=== PATIENT | female | born 1940 | race Caucasian/White ===

== ENCOUNTER → 2024-01-07 16:49 | Outpatient (REF) | payer MEDICARE, OTHER, SELFPAY | LOC: RAD 16:49 | PROVIDERS: ATTENDING PHYSICIAN Physician Assistant | DX: M79.672 Pain in left foot (principal) | CPT/HCPCS: 73630 ==

== ENCOUNTER 2024-04-27 15:49 | Emergency (ER) | payer MEDICARE, OTHER, SELFPAY ==
[2024-04-27 15:52] VITALS: BP 96/75
[2024-04-27 16:18] LABS: % Basophils 0.7 % (0-2); % Eosinophils 0.9 % (0-6); % Immature Granulocytes 0.3 % (0-0.5); % Lymphocytes 24.3 % (20.5-51.1); % Monocytes 7.2 % (1.7-9.3); % Neutrophils 66.6 % (42.2-75.2); Absolute Basophils 0.1 10^3/uL (0-0.2); Absolute Eosinophils 0.1 10^3/uL (0-0.7); Absolute Lymphocytes 1.7 10^3/uL (1.2-3.4); Absolute Monocytes 0.5 10^3/uL (0.1-0.6); Absolute Neutrophils 4.6 10^3/uL (1.4-6.5); Hematocrit 36.9 % (37.0-47.0); Hemoglobin 12.6 g/dL (12.0-16.0); Mean Corp Hgb Conc. 34.1 g/dL (33.0-37.0); Mean Corpuscular Hgb 31.6 pg (27.0-31.0); Mean Corpuscular Volume 92.5 fL (81.0-99.0); Mean Platelet Volume 10.2 fL (7.4-10.4); Nucleated Red Blood Cells % 0 %; Platelet Count 178 10^3/uL (130-400); Red Blood Cell Count 3.99 10^6/uL (4.20-5.40); Red Cell Dist. Width 13.2 % (11.5-14.5)
[2024-04-27 16:29] LABS: ALT (SGPT) 15 U/L (0-35); AST (SGOT) 24 U/L (14-36); Albumin 4.2 g/dl (3.5-5.0); Alkaline Phosphatase 68 U/L (38-126); Blood Urea Nitrogen 19 mg/dl (7-17); Calcium 9.5 mg/dl (8.4-10.2); Carbon Dioxide 28 mmol/L (22-30); Chloride 100 mmol/L (98-107); Glucose 131 mg/dl (70-99); Potassium 4.1 mmol/L (3.5-5.1); Sodium 134 mmol/L (135-145); Total Bilirubin 0.6 mg/dl (0.2-1.3); eGFR > 60.00
[2024-04-27 16:41] LABS: Troponin I < 0.012 ng/ml
[2024-04-27 18:26] VITALS: BMI 23.8
--- NOTE | 2024-04-27 18:56 | ED.GENMED ---
History of Present Illness
General
Chief Complaint: Abdominal Pain
Source: patient and family
Time Seen by Provider: 04/27/24 18:36
History of Present Illness
History of Present Illness:
84-year-old female presents to the emergency department with complaints of nausea and diffuse abdominal pain that started approximately 2 weeks ago and is getting progressively worse. The pain seems to be worse when she stands up. She noted a few
episodes of vomiting that was nonbloody but this is not persistent. She denies chest pain, shortness of breath, headache, fever, chills. Her bowel movements have been normal without black stool or blood. No urinary symptoms. Of note,
approximately 2 weeks ago patient had an episode of syncope. Son whom she lives with states that he caught her and there was no head injury. They did not see medical care at that time because she 'got right back up' and continued throughout her
day. She also notes vague right arm discomfort that comes and goes, none currently. No associated leg/arm swelling, numbness, tingling, weakness.
Past History
Past History
ED Past Medical History: CVA, GERD and HTN
ED Past Surgical History: Appendectomy and Gynecological
Social History
Tobacco: Non-smoker
Alcohol: None
Drug: None
Living: with family
Phy Exam
Physical Exam
Physical Exam:
GENERAL: Alert , in no apparent distress
EYE: pupils equal and reactive
NECK: Supple, no significant adenopathy.
ENT: o/p clr, mmm.
CARDIAC: Regular rate and rhythm .
LUNGS: Clear breath sounds bilaterally, no acute respiratory distress, no wheezes/rales/rhonchi
ABDOMEN: Soft, diffuse nonspecific tenderness, no r/g, no cvat
NEUROLOGICAL: Alert and oriented, no focal neuro deficits
SKIN: Warm and dry, skin intact.
MUSCULOSKELETAL: No edema, well perfused.
PSYCH: Normal and appropriate interaction.
Course
Orders/Labs/Results
Orders:
Orders
04/27/24 15:55
Electrocardiogram (*1) Urgent
Reason for Study: Vertigo / Dizzy
EKG- Treatment ONCE
04/27/24 16:07
Complete Blood Count/With Diff Urgent
Comprehensive Metabolic Panel Urgent
Troponin I Urgent
04/27/24 18:59
CT Abd/pel Without Iv Or Oral Urgent
Comment:
Reason For Exam: abd pain
Abnormal Lab Results
04/27/24
16:07
RBC 3.99 L 10^6/uL
(4.20-5.40)
Hct 36.9 L %
(37.0-47.0)
MCH 31.6 H pg
(27.0-31.0)
Sodium 134 L mmol/L
(135-145)
BUN 19 H mg/dl
(7-17)
Glucose 131 H mg/dl
(70-99)
04/27/24 16:07
04/27/24 16:07
Vital Signs
Initial and Last Documented VS:
Initial Vital Signs
Temp Pulse Resp BP Pulse Ox
97.4 F 99 16 96/75 98
04/27/24 15:52 04/27/24 15:52 04/27/24 15:52 04/27/24 15:52 04/27/24 15:52
Last Documented Vital Signs
Temp Pulse Resp BP Pulse Ox
97.4 F 85 27 160/81 95
04/27/24 15:52 04/27/24 20:50 04/27/24 20:50 04/27/24 20:50 04/27/24 20:50
*Critical Care Note
Total Time (30-74mins, 75-104mins- exclusive of procedures): Not Applicable
Update Note
Update Note:
Patient presents to the Emergency Department with ___abdominal pain nausea vomiting
Number and Complexity of Problems Addressed at the Encounter
� Chronic conditions affecting care:
� Acute Exacerbation and/or Progression of Chronic Illness:
� Differential Diagnosis includes: But not limited to cholecystitis, bowel obstruction, gastroenteritis, etc. etc.
Amount and/or Complexity of Data to be Reviewed and Analyzed
� I performed an independent evaluation of and my interpretation is:
EKG: Read by me, normal sinus rhythm, normal rate, normal axis
CT:Moderate to severe pectus excavatum deformity compressing the right anterior and inferior aspect of the heart.
Coronary artery calcifications are present. Please correlate with symptoms of and risk factors for coronary artery disease, with further workup as clinically appropriate.
No evidence for urinary tract calculi.
No evidence for bowel obstruction or free intraperitoneal air
The stomach is not distended limiting evaluation. Possible wall thickening involving the stomach, but limited evaluation because of a lack of distention. Please correlate with any clinical signs or symptoms that would suggest gastritis.
Xrays:
Laboratory Studies: Reviewed by me, generally unremarkable
Other:
� Review of other/old records reveals:
� Clinical information was obtained by an independent historian: Son who is at bedside
� Prescriptions/Medications Considered but not given:
� Further testing considered but not performed:
Risk of Complications and/or Morbidity or Mortality of Patient Management
� Social determinants of health affecting care:
� Discussion with other providers (PCP, Hospitalists, Consultants, etc):
� Escalation of care including admission/observation vs risk of discharge considered: Patient's workup here generally unremarkable. Abdomen tender at this time. Patient ate a meal here without difficulty or vomiting. I did
review in detail with patient and son lab and CT abnormalities particularly coronary artery calcifications etc. Given copy of both labs and CAT scan and recommended close follow-up this week. Patient without acute neurological findings.
ED Attending Note
-
Portions of this chart may have been created with voice recognition software.� Occasional wrong word or��sound alike� substitutions may have occurred due to the inherent limitations of voice recognition software.
Discharge Plan
Departure
Patient Disposition: Home (Routine Discharge)
Date of Disposition: 04/27/24
Time of Disposition: 21:19
Patient with high blood pressure during this ER visit?: Yes
Condition: Good
Discharge Problem:
Abdominal pain
Instructions: Nausea and Vomiting, Adult (DC), Abdominal Pain, BLOOD PRESSURE
Referrals:
Elise Prater MD [Active] - Next open appointment
UNKNOWN - PT DOES,NOT KNOW [Family Provider] -
Activity Restrictions/Additional Instructions:
YOU HAVE ABNORMALITIES IN YOUR TESTING HERE THAT REQUIRE CLOSE FOLLOW-UP. PLEASE SEE YOUR FAMILY DOCTOR THIS WEEK. PLEASE CONTACT THE MINISTER ASSISTANT FOR PROMPT FOLLOW-UP WELL. IF YOU DEVELOP CHEST PAIN, SHORTNESS OF BREATH, SWELLING, REPEATED
VOMITING, RECURRENT ABDOMINAL PAIN, OR OTHER WORRISOME SIGNS, PLEASE RETURN TO THE ER IMMEDIATELY.
Interventions
Interventions:
*Risk Screen - Suicide Last Done: 04/27/24 18:26
*General Assessment Last Done: 04/27/24 18:27
*Neglect/Abuse Screening Last Done: 04/27/24 18:26
*ED- Fall Risk Assessment Last Done: 04/27/24 18:26
*Nursing Disposition Last Done: 04/27/24 21:29
XS-Kkabxk-Yymoqksqku Assessment Last Done: 04/27/24 18:27
Discharge Date and Time
Discharge Date/Time: 04/27/24 21:30
Print Language: [id number]
[2024-04-27 20:50] VITALS: BP 160/81
== END 2024-04-27 21:30 | disposition home or self-care (01) ==
LOC: EMR 15:49
PROVIDERS: Emergency Medicine; EMERGENCY PHYSICIAN Emergency Medicine
DX: R10.84 Generalized abdominal pain (principal); I10 Essential (primary) hypertension; Z86.73 Personal history of transient ischemic attack (TIA), and cerebral infarction without residual deficits; Z90.49 Acquired absence of other specified parts of digestive tract
CPT/HCPCS: 99284; 74176; 80053; 84484; 85025; 93005